=== PATIENT | male | born 1990 | race Caucasian/White ===

== ENCOUNTER 2018-03-21 00:59 | Emergency (ER) | payer SELFPAY | END 2018-03-21 01:34 | disposition home or self-care (01) | LOC: ERS 00:59 | DX: Z02.89 Encounter for other administrative examinations (principal); J45.909 Unspecified asthma, uncomplicated; F41.9 Anxiety disorder, unspecified | CPT/HCPCS: 99283 ==

== ENCOUNTER 2020-03-27 01:19 | Emergency (ER) | payer SELFPAY | END 2020-03-27 01:57 | LOC: EEVIPCON 01:19 → ERS 01:19 | DX: S00.81XA Abrasion of other part of head, initial encounter (principal); J45.909 Unspecified asthma, uncomplicated; F41.9 Anxiety disorder, unspecified; X58.XXXA Exposure to other specified factors, initial encounter | CPT/HCPCS: 99283 ==

== ENCOUNTER 2020-05-17 14:51 | Emergency (ER) | payer SELFPAY ==
[2020-05-17] MEDS ORDERED: Lidocaine 1% w/Epinephrine 1:100K 20 ML VIAL ONE (15:31)
--- NOTE | 2020-05-17 16:28 | RAD ---
Exam:Right tibia fibula 2 view HISTORY: Laceration. COMPARISON: None FINDINGS: There does appear to be a small focus of subcutaneous emphysema compatible with soft tissue injury. There appears to be overlying bandage material limits evaluation body. On the lateral image there is evidence of 2 separate linear densities. Possibility of small foreign bodies cannot be excluded, measuring 0.8 and 0.3 cm respectively. No fracture, cortical irregularity or periosteal reaction IMPRESSION: 1. Soft tissue injury 2. Possible radiopaque foreign body. Correlate clinically.
[2020-05-17] MEDS ORDERED: HYDROcodone/Acetaminophen 10/325 mg Tablet ONE (18:26)
[2020-05-17] MEDS ORDERED: Bacitracin 1 PK ONE ×2 (18:30→18:31)
== END 2020-05-17 18:46 | disposition home or self-care (01) ==
LOC: ERS 14:51
DX: S81.812A Laceration without foreign body, left lower leg, initial encounter (principal); J45.909 Unspecified asthma, uncomplicated; F41.9 Anxiety disorder, unspecified; W26.0XXA Contact with knife, initial encounter
CPT/HCPCS: 12002

== ENCOUNTER 2020-06-02 16:25 | Emergency (ER) | payer SELFPAY | END 2020-06-02 16:50 | disposition home or self-care (01) | LOC: ERS 16:25 | DX: T40.991A Poisoning by other psychodysleptics [hallucinogens], accidental (unintentional), initial encounter (principal); J45.909 Unspecified asthma, uncomplicated | CPT/HCPCS: 99281 ==

== ENCOUNTER 2021-07-14 02:55 | Inpatient (IN) | payer SELFPAY ==
[2021-07-14] MEDS ORDERED: Propofol 1,000 MG/100 ML VIAL IV ONE ×2 (03:04)
[2021-07-14 03:23] LABS: #Basophils 0.1 thou/uL (0.0-0.2); #Eosinphils 0.2 thou/uL (0.0-0.7); #Lymphocytes 3.3 thou/uL (1.20-3.40); #Monocytes 0.9 thou/uL (0.11-0.59); #Neutrophils 5.2 thou/uL (1.40-6.50); %Eosinophils 2.5 % (0.0-10.0); %Lymphocytes 33.9 % (21.0-51.0); %Monocytes 8.8 % (0.0-10.0); %Neutrophils 53.8 % (42.0-75.0); Hemoglobin 16.3 g/dL (14.0-18.0); Mean Corpuscular HGB CONC 33.2 g/dL (32.0-36.0); Mean Corpuscular Hemoglobin 29.5 pg (27.0-31.0); Mean Platelet Volume 10.5 fL (7.4-10.4); Platelet Count 153 thou/uL (130-400); RBC Distribution Width 13.3 % (11.5-14.5); Red Blood Cell (RBC) Count 5.54 mill/uL (4.70-6.10); White Blood Cell (WBC) Count 9.7 thou/uL (4.8-10.8)
[2021-07-14 03:37] LABS: Amphetamine Not Detected (NotDetected); Barbiturates Screen Not Detected (NotDetected); Benzodiazepine Screen Not Detected (NotDetected); Cocaine Metabolite Screen Not Detected (NotDetected); Methadone Not Detected (NotDetected); Methamphetamine Not Detected (NotDetected); Opiate Screen Not Detected (NotDetected); Oxycodone Screen Not Detected (NotDetected); Phencyclidine (PCP) Detected (NotDetected); THC/Cannabinoid Screen Detected (NotDetected); Tricyclic Screen Not Detected (NotDetected)
[2021-07-14 03:44] LABS: ALT (SGPT) 38 U/L (8-55); AST (SGOT) 35 U/L (5-34); Acetaminophen Less than 6.0 mcg/mL (10.0-30.0); Albumin 4.6 g/dL (3.5-5.0); Alcohol 150 mg/dL (Less than 10); Alkaline Phosphatase 44 U/L (40-110); Anion Gap 17 mmol/L (10-20); BUN (Urea Nitrogen) 12 mg/dL (8.9-20.6); Bilirubin, Total 0.4 mg/dL (0.2-1.2); CK (CPK) 430 U/L (30-200); Calc. Creatinine Clearance 0 mL/min (70-130); Calcium 9.5 mg/dL (7.8-10.44); Carbon Dioxide 22 mmol/L (22-29); Chloride 106 mmol/L (98-107); Glucose 110 mg/dL (70-105); Potassium 3.5 mmol/L (3.5-5.1); Protein, Total 7.6 g/dL (6.0-8.3); Salicylate Less than 8.0 mg/dL (15.0-30.0); Sodium 141 mmol/L (136-145)
[2021-07-14] MEDS ORDERED: Lorazepam 2 MG/ML VIAL ONE (04:05)
[2021-07-14] MEDS ORDERED: Midazolam HCl 5 mg/ml Vial ONE (04:16)
[2021-07-14 04:40] LABS: Actual Bicarbonate (HCO3a) 21.6 mEq/L (22-28); Analyzer IN Cardio ER; Base Excess (BEa) -3.7 mEq/L (-2.0 to +3.0); CO2 Tension 40.2 mmHg (35.0-45.0); Calcium, Ionized (arterial) 1.13 mmol/L (1.12-1.30); Carboxyhemoglobin (COHb) 0.4 gm% (0.0-3.0); Hemoglobin (Hb) 16.3 g/dL (14.0-18.0); O2 Tension (PaO2), arterial 213.6 mmHg (80.0-100.0); Potassium - ABG Lab 3.41 mmol/L (3.70-5.30); pH, Arterial 7.35 (7.35-7.45)
[2021-07-14 04:42] LABS: Puncture Site RRA
[2021-07-14] MEDS ORDERED: Ondansetron ODT 4 MG TAB PO PRN (05:18)
[2021-07-14] MEDS ORDERED: Acetaminophen 650 MG Suppository PR PRN (05:18)
[2021-07-14] MEDS ORDERED: Ondansetron PF 4 MG/2 ML Vial IVP PRN (05:18)
[2021-07-14] MEDS ORDERED: Acetaminophen 325 MG TAB PO PRN (05:18)
[2021-07-14] MEDS ORDERED: Morphine 4 MG/ML VIAL SLOW IVP PRN (05:27)
[2021-07-14] MEDS ORDERED: DISCONTINUE PREVIOUS NARCOTIC PAIN MEDICATIONS AND BENZODIAZEPINES FS SCH (05:30)
[2021-07-14] MEDS ORDERED: Propofol BOLUS 1,000 MG/100 ML VIAL IV PRN (05:30)
[2021-07-14] MEDS ORDERED: Ventilator Sedation Protocol 1 EACH FS SCH (05:30)
[2021-07-14] MEDS ORDERED: Fentanyl BOLUS 250 ML IVPB PRN (05:30)
[2021-07-14 07:17] VITALS: BMI 46.0
[2021-07-14] MEDS: Propofol 1,000 MG/100 ML VIAL IV PRN ×6 (07:32→22:31)
[2021-07-14 07:42] LABS: SARS-CoV-2 NAA Rapid Test Not Detected (NotDetected)
[2021-07-14] MEDS ORDERED: methylPREDNISolone Sod Succ/PF 125 MG/2 ML VIAL IVP SCH (12:45)
[2021-07-14] MEDS: Haloperidol Lactate 5 MG/ML VIAL IM SCH ×3 (13:00→20:36)
[2021-07-14] MEDS: fentaNYL Citrate-0.9 % NaCl/PF 100 ML IV SCH ×2 (13:14→23:16)
[2021-07-14] MEDS: Sodium Chloride 0.45% 1,000 ML IV SCH ×2 (14:30→22:33)
[2021-07-14] MEDS: Lorazepam 2 MG/ML VIAL SLOW IVP PRN ×3 (21:23→23:51)
[2021-07-15] MEDS: Propofol 1,000 MG/100 ML VIAL IV PRN ×4 (00:26→07:43)
[2021-07-15] MEDS: Haloperidol Lactate 5 MG/ML VIAL IM SCH ×3 (00:59→11:36)
[2021-07-15 02:27] VITALS: BP 107/55
[2021-07-15 04:11] LABS: #Lymphocytes 1.1 thou/uL (1.20-3.40); #Neutrophils 13.6 thou/uL (1.40-6.50); %Basophils 0.1 % (0.0-1.0); %Eosinophils 0.1 % (0.0-10.0); %Lymphocytes 7.3 % (21.0-51.0); %Monocytes 6.2 % (0.0-10.0); %Neutrophils 86.3 % (42.0-75.0); Hemoglobin 15.2 g/dL (14.0-18.0); Mean Corpuscular HGB CONC 32.7 g/dL (32.0-36.0); Mean Corpuscular Hemoglobin 29.2 pg (27.0-31.0); Mean Corpuscular Volume 89.4 fL (78.0-98.0); Mean Platelet Volume 10.6 fL (7.4-10.4); Platelet Count 143 thou/uL (130-400); RBC Distribution Width 13.5 % (11.5-14.5); Red Blood Cell (RBC) Count 5.21 mill/uL (4.70-6.10); White Blood Cell (WBC) Count 15.7 thou/uL (4.8-10.8)
[2021-07-15 04:46] LABS: Anion Gap 15 mmol/L (10-20); BUN (Urea Nitrogen) 15 mg/dL (8.9-20.6); Calc. Creatinine Clearance 220 mL/min (70-130); Calcium 8.8 mg/dL (7.8-10.44); Carbon Dioxide 21 mmol/L (22-29); Chloride 104 mmol/L (98-107); Glucose 135 mg/dL (70-105); Potassium 4.2 mmol/L (3.5-5.1); Sodium 136 mmol/L (136-145)
[2021-07-15] MEDS: Lorazepam 2 MG/ML VIAL SLOW IVP PRN (05:19)
[2021-07-15] MEDS: fentaNYL Citrate-0.9 % NaCl/PF 100 ML IV SCH (06:35)
[2021-07-15] MEDS: Sodium Chloride 0.45% 1,000 ML IV SCH (09:42)
[2021-07-15 10:10] VITALS: TEMP 96.7
== END 2021-07-15 13:39 | disposition home or self-care (01) | DRG 896 ==
LOC: ERS 02:55 → ERHOLD 04:36 → CCU 06:25 → OBSVTOIN 19:03
PROVIDERS: ADMIT Student in an Organized Health Care Education/Training Program; ATTEND Internal Medicine
PROC: 0BH17EZ Insertion of Endotracheal Airway into Trachea, Via Natural or Artificial Opening (ICD-10-PCS; principal; 2021-07-14)
PROC: 5A1935Z Respiratory Ventilation, Less than 24 Consecutive Hours (ICD-10-PCS; 2021-07-14)
PROC: 0D9670Z Drainage of Stomach with Drainage Device, Via Natural or Artificial Opening (ICD-10-PCS; 2021-07-14)
DX: F10.129 Alcohol abuse with intoxication, unspecified (principal); G92.8 Other toxic encephalopathy; J96.00 Acute respiratory failure, unspecified whether with hypoxia or hypercapnia; Z20.822 Contact with and (suspected) exposure to COVID-19; Y90.6 Blood alcohol level of 120-199 mg/100 ml; F16.129 Hallucinogen abuse with intoxication, unspecified; S02.2XXA Fracture of nasal bones, initial encounter for closed fracture; W22.8XXA Striking against or struck by other objects, initial encounter; F12.129 Cannabis abuse with intoxication, unspecified; F41.9 Anxiety disorder, unspecified; J45.909 Unspecified asthma, uncomplicated; Z88.8 Allergy status to other drugs, medicaments and biological substances; Z90.09 Acquired absence of other part of head and neck; Z78.1 Physical restraint status
CPT/HCPCS: 31500; 36415; 36416; 36600; 70450; 70486; 71045; 80048; 80053; 80306; 80307; 82550; 82805; 85025; 94002; 94003; 94640; G0378; J1630; J2060; J2250; J2704; J2930; J7620; U0002

== ENCOUNTER 2021-08-18 11:32 | Emergency (ER) | payer SELFPAY | END 2021-08-18 11:43 | LOC: ERS 11:32 | DX: F16.10 Hallucinogen abuse, uncomplicated (principal); J45.909 Unspecified asthma, uncomplicated | CPT/HCPCS: 99284 ==